=== PATIENT | male | born 1990 ===

== ENCOUNTER 2018-10-15 10:12 | Emergency (ER) | payer SELFPAY ==
[2018-10-15 10:29] VITALS: BP 122/66
[2018-10-15] MEDS ORDERED: BOOSTRIX IM ONE (10:42)
--- NOTE | 2018-10-15 10:53 | Emergency Department Report ---
HPI - General Chief Complaint: Extremity Injury, Upper Time Seen by Provider: 10/15/18 10:42 - HPI HPI: 28-year-old male presents to the emergency department with a amputation of the distal portion of his right middle finger that occurred around 9:30 AM. 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 He denies any significant discomfort. There is some mild bleeding that slows upper stops with pressure. He is right-hand dominant. Unknown last tetanus vaccination. Otherwise no past medical history. ED Past Medical Hx - Past Medical History Previous Medical History?: No - Surgical History Past Surgical History?: No - Social History Smoking Status: Current Every Day Smoker Substance Use Type: Alcohol - Medications Home Medications: Home Medications Medication Instructions Recorded Confirmed Last Taken Type HYDROcodone/APAP 5-325 [[place] 1 each PO Q6HR PRN #12 tablet 10/15/18 Unknown Rx 5/325] Sulfamethoxazole/Trimethoprim 1 each PO BID #14 tablet 10/15/18 Unknown Rx [Bactrim DS TAB] ED Review of Systems ROS: Stated complaint: RT FINGER LAP Other details as noted in HPI Comment: All other systems reviewed and negative Constitutional: denies: chills, fever Musculoskeletal: arthralgia. denies: back pain Skin: other (right distal middle finger dictation). denies: rash Physical Exam - Physical Exam Vital Signs: Vital Signs 10/15/18 10:25 Temperature 98.1 F Pulse Rate 66 Respiratory 16 Rate Blood Pressure 122/66 O2 Sat by Pulse 98 Oximetry Physical Exam: GENERAL: The patient is well-developed well-nourished. HENT: Normocephalic. Atraumatic. Patient has moist mucous membranes. EYES: Extraocular motions are intact. Pupils equal reactive to light bilaterally. NECK: Supple. Trachea is midline. CHEST/LUNGS: Clear to auscultation. There is no respiratory distress noted. HEART/CARDIOVASCULAR: Regular. There is no tachycardia. There is no murmur. ABDOMEN: There is no abdominal distention. SKIN: There is an open wound of the distal right middle finger where the patient has an amputation. NEURO: The patient is awake, alert, and oriented. The patient is cooperative. The patient has no focal neurologic deficits. The patient has normal speech. MUSCULOSKELETAL: There is an amputation of the distal right middle finger, just proximal to the nail, through the distal phalanx. Mild tenderness to palpation around the area of this amputation. There are no maximal sensory deficits. Capillary refill less than 2 seconds proximally. Radial pulses +2 over 4 to the affected right wrist. ED Course Vital Signs 10/15/18 10:25 Temperature 98.1 F Pulse Rate 66 Respiratory 16 Rate Blood Pressure 122/66 O2 Sat by Pulse 98 Oximetry - Consultations Consultation #1: 10/15/18 14:55 I spoke with the orthopedist conduit installer regarding the patient's distal right middle finger amputation. This is not an injury where the amputated fingertip would be reimplanted. The patient is to receive pain medication and antibiotics and can follow up outpatient. ED Medical Decision Making - Radiology Data Radiology results: image reviewed interpreted by me: X-ray of the right middle finger shows a fracture/amputation of the middle of the distal phalanx - Medical Decision Making This patient has a distal right middle finger amputation from a delicatessen jessica t cutter that occurred about one hour prior to arrival. Patient is awake and alert. The wound appears clean and there is only some very mild oozing of blood. He was given a tetanus booster. He was given IV antibiotics. X-ray confirms a distal right middle finger amputation through the middle of the distal phalanx. The orthopedist was contacted and feels that the patient can follow up outpatient. He will receive a prescription for pain medication and antibiotics. He has been given the referral information for Dr. Serrano. We discussed signs or symptoms of infection and reasons to return to the emergency department more urgently. Anastacia was used for translation. - Differential Diagnosis laceration, amputation, vascular injury Critical Care Time: No Critical care attestation.: If time is entered above; I have spent that time in minutes in the direct care of this critically ill patient, excluding procedure time. ED Disposition Clinical Impression: Fingertip amputation Qualifiers: Encounter type: initial encounter Qualified Code(s): S68.119A - Complete traumatic metacarpophalangeal amputation of unspecified finger, initial encounter Open fracture of finger of right hand Qualifiers: Encounter type: initial encounter Finger: middle finger Phalanx: distal Fracture alignment: nondisplaced Qualified Code(s): S62.662B - Nondisplaced fracture of distal phalanx of right middle finger, initial encounter for open fracture Disposition: DC-01 TO HOME OR SELFCARE Is pt being admited?: No Condition: Stable Instructions: Finger Fracture (ED), Finger Amputation (ED) Additional Instructions: Please follow up with the orthopedist in the next few days. I have given you a referral for a local orthopedist, Dr Tigre Serrano. Take the antibiotics as prescribed. Return to the emergency department with any signs/symptoms of infection such as increased pain, development of fever, surrounding redness, swelling, or with any acute distress. You have been prescribed a medication that is sedating and therefore should not be taken prior to driving, working, and responsible for children and in no way should be mixed with alcohol of any quantity. Prescriptions: Sulfamethoxazole/Trimethoprim [Bactrim DS TAB] 1 each PO BID #14 tablet HYDROcodone/APAP 5-325 [[place] 5/325] 1 each PO Q6HR PRN #12 tablet PRN Reason: Pain Referrals: TIGRE SERRANO MD [Staff Physician] - 2-3 Days Print Language: KINYARWANDA
[2018-10-15] MEDS ORDERED: ceFAZolin 2 GM in NACL 0.9% 100 ML IV ONE (11:30)
--- NOTE | 2018-10-15 12:01 | XRay Report ---
Right fingers, 3 views INDICATION: Right middle finger injury. COMPARISON: None. IMPRESSION: Soft tissue and bony amputation of the distal third digit is demonstrated near the level of the mid distal phalanx. No obvious radiopaque foreign body is identified. The remaining bony stru ctures and joint spaces are unremarkable. No significant DJD. Signer Name: Doron Daly Jr, MD Signed: 10/15/2018 11:57 AM Workstation Name: [id number]
[2018-10-15] MEDS ORDERED: NACL 0.9% IR ONE (12:33)
[2018-10-15] MEDS ORDERED: NACL 0.9% 500 ML IR ONE (12:33)
== END 2018-10-15 13:26 | disposition home or self-care (01) ==
LOC: ED 10:12
DX: S68.119A Complete traumatic metacarpophalangeal amputation of unspecified finger, initial encounter (principal); S62.662B Nondisplaced fracture of distal phalanx of right middle finger, initial encounter for open fracture; W45.8XXA Other foreign body or object entering through skin, initial encounter; Y93.89 Activity, other specified; Y92.89 Other specified places as the place of occurrence of the external cause; Y99.8 Other external cause status
CPT/HCPCS: 73140; 90471; 90715; 96374; 99283; J0690